=== PATIENT | male | born 1950 | race Caucasian/White ===

== ENCOUNTER 2021-01-15 19:12 | Emergency (ER) | payer SELFPAY ==
[~2021-01-15] VITALS: Ht 170.2 cm; Wt 73.2 kg
[2021-01-15 19:23] VITALS: BP 143/67
[2021-01-15] MEDS ORDERED: normal saline 1000ml 1,000 ML IV ONE ×2 (19:45→20:40)
[2021-01-15 20:08] LABS: BASOPHILS # (AUTO) 0.2 X10'3 (0-0.2); BASOPHILS % (AUTO) 1.5 % (0-1); EOSINOPHILS # (AUTO) 0.1 X10'3 (0-0.9); EOSINOPHILS % (AUTO) 1.2 % (0-6); HEMOGLOBIN 15.5 g/dl (14.0-17.9); LYMPHOCYTES # (AUTO) 0.8 X10'3 (1.1-4.8); LYMPHOCYTES % (AUTO) 6.6 % (21-51); MEAN CORPUSCULAR HEMOGLOBIN 33.2 PG (27.0-31.0); MEAN CORPUSCULAR HGB CONC 33.6 g/dL (33.0-36.5); MEAN CORPUSCULAR VOLUME 98.9 FL (78-98); MEAN PLATELET VOLUME 10.9 FL (7.4-10.4); MONOCYTES # (AUTO) 0.7 X10'3 (0-0.9); MONOCYTES % (AUTO) 6.1 % (2-12); NEUTROPHILS # (AUTO) 9.9 X10'3 (1.8-7.7); NEUTROPHILS % (AUTO) 84.6 % (42-75); PLATELET COUNT 131 X10'3 (140-440); RED BLOOD COUNT 4.65 X10'6 (4.70-6.10); RED CELL DISTRIBUTION WIDTH 14.4 % (11.5-14.5); WHITE BLOOD COUNT 11.7 X10'3 (4.5-11.0)
[2021-01-15 20:19] LABS: ALANINE AMINOTRANSFERASE 23 U/L (12-78); ALBUMIN 3.7 G/DL (3.4-5.0); ALKALINE PHOSPHATASE 134 IU/L (46-116); ANION GAP 14 (8-16); ASPARTATE AMINO TRANSFERASE 20 U/L (10-37); BILIRUBIN,TOTAL 0.7 MG/DL (0.1-1.0); BLOOD UREA NITROGEN 9 MG/DL (7-18); CALCIUM 8.4 MG/DL (8.5-10.1); CHLORIDE 104 MMOL/L (99-107); CREATININE 1.79 MG/DL (0.60-1.10); GLUCOSE 107 MG/DL (70-104); LIPASE 146 U/L (73-393); POTASSIUM 3.3 MMOL/L (3.5-5.1); SODIUM 138 MMOL/L (135-145); eGFR 38 ML/MIN
[2021-01-15 20:23] LABS: ALBUMIN/GLOBULIN RATIO 0.8 (1.1-1.5); TOTAL PROTEIN 8.4 G/DL (6.4-8.2)
[2021-01-15] MEDS ORDERED: potassium Cl 20 mEq SR tablet PO ONE (20:40)
--- NOTE | 2021-01-15 22:32 | NUR ---
PT CALLED FAMILY MEMBER FOR A RIDE. HE WILL WAIT IN LOBBY.
== END 2021-01-16 00:11 | disposition home or self-care (01) ==
LOC: ER 19:13
DX: T67.5XXA Heat exhaustion, unspecified, initial encounter (principal); R00.0 Tachycardia, unspecified; X30.XXXA Exposure to excessive natural heat, initial encounter; Y93.89 Activity, other specified; Y92.89 Other specified places as the place of occurrence of the external cause; Y99.8 Other external cause status
CPT/HCPCS: 80053; 83690; 85025; 93005; 96360; 96361; 99284; J7030